=== PATIENT | male | born 1980 | race Caucasian/White ===

== ENCOUNTER 2018-02-01 20:32 | Inpatient (IN) | payer OTHER ==
[~2018-02-01] VITALS: Ht 175.3 cm; Wt 83.9 kg
[~2018-02-01 20:32] MED LIST: AUGMENTIN 875875 MG PO; HYDROCODON-ACE1 EAC7 PO; KEFLEX500 MG PO; NOHOMEMEDICATIONS; NORCO 5-325 TA1 EACH PO; PERCOCET 5-3251 EACH PO; ZANTAC 150MG T150 M1 PO
[2018-02-01 20:47] VITALS: BP 123/73
[2018-02-01 21:25] LABS: HEMATOCRIT 39.1 % (42.0-52.0); HEMOGLOBIN 13.1 gm/dL (14.0-18.0); MCH 28.5 pg (26.0-34.0); MCHC 33.4 g/dL (28.0-37.0); MCV 85.2 fL (80.0-100.0); MPV 5.9 fl. (7.2-11.1); NUCLEATED RBCS 0 /100WBC; PLATELET COUNT* 571 thou/uL (150-400); RBC 4.59 mil/uL (4.50-6.00); WBC 10.4 thou/uL (4.0-11.0)
[2018-02-01 21:33] LABS: CALCIUM 9.4 mg/dL (8.5-10.1); CREATININE 0.9 mg/dL (0.6-1.3); POTASSIUM 3.8 mmol/L (3.5-5.1)
[2018-02-01 21:38] LABS: TOTAL BILIRUBIN 0.2 mg/dL (<0.1-1.0); TOTAL PROTEIN 8.1 g/dL (6.4-8.2)
[2018-02-01 22:19] LABS: ABSOLUTE EOSINOPHILS 0.4 thou/uL (0.0-0.7); ABSOLUTE LYMPHOCYTES 2.7 thou/uL (0.8-5.3); ABSOLUTE MONOCYTES 0.6 thou/uL (0.0-1.2); ABSOLUTE NEUTROPHILS 6.7 thou/uL (1.6-8.1)
[2018-02-01 22:21] LABS: PLATELET ESTIMATE INCREASED
[2018-02-01 23:07] VITALS: BP 115/78
[2018-02-01 23:10] VITALS: BP 123/87
[2018-02-02 04:17] LABS: HEMATOCRIT 36.9 % (42.0-52.0); HEMOGLOBIN 12.5 gm/dL (14.0-18.0); MCH 29.1 pg (26.0-34.0); MCHC 33.9 g/dL (28.0-37.0); MCV 85.8 fL (80.0-100.0); RBC 4.3 mil/uL (4.50-6.00); RDW-CV 13.2 % (10.5-14.5); WBC 10.6 thou/uL (4.0-11.0)
[2018-02-02 04:45] LABS: ALBUMIN 2.7 g/dL (3.4-5.0); CALCIUM 8.9 mg/dL (8.5-10.1); CREATININE 0.8 mg/dL (0.6-1.3); POTASSIUM 4.2 mmol/L (3.5-5.1); TOTAL BILIRUBIN 0.2 mg/dL (<0.1-1.0); TOTAL PROTEIN 7.3 g/dL (6.4-8.2)
--- NOTE | 2018-02-02 07:00 | NUR ---
NEW ADMIT OVERNIGHT. PT RECEIVING IV ABX, IV PAIN MED AND ABLE TO SLEEP. JOSELYN DANIELLEG CDI, RLEG ELEVATED ON PILLOWS. ON CONTACT ISOLATION FOR MRSA, CX SENT FROM ER I&D. WOUND CARE TO SEE PT TODAY. 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 UP WITH SBA. ABLE TO USE CALL LITE AND MAKE NEEDS KNOWN.
--- NOTE | 2018-02-02 14:31 | NUR ---
SW completed initial assessment with information from nurse and chart review due to request from nurse to check back with the pt possibly tomorrow due to pt pain level and mood. Pt lives at home with his significant other. [employer] following pt due to Medicaid pending status. Pt nurse reported that pt has been non compliant with instructions provided from [facility] [place]. SW to continue to follow to assist with safe dc planning.
--- NOTE | 2018-02-02 14:42 | NUR ---
WOUND CARE NOTE: CONSULT RECEIVED FOR CELLULITIS/ABSCESS. PATIENT PRESENTS WITH AN ABSCESS TO THE RIGHT ANTERIOR LEG-JUST DISTAL TO THE KNEE. PATIENT UPSET THAT HE DIDN'T GET A WARNING ABOUT HAVING TO HAVE HIS DRESSING CHANGED. DRESSING REMOVED, DRESSING WITH MODERATE AMOUNTS OF SEROSANGUINEOUS DRAINAGE. IVY-WOUND IS RED, EDEMATOUS, WARM TO TOUCH. INCISION SITE MEASURES APPROXIMATELY 0.1X0.5X1.6. UNABLE TO PERFORM THOROUGH ASSESSMENT DUE TO HIS PAIN. CLEANSED AREA, PACKED WITH AQUACEL AG. COVERED WITH ABD. SECURED WITH KERLIX. THERE IS A BANDAID COVERING AN AREA DISTAL TO THIS WOUND, BUT PATIENT REFUSED TO ALLOW ME TO CHECK. STATES IT HAD FUSED. RECOMMEND DAILY DRESSING CHANGES FOLLOW UP IN THE WOUND CENTER UPON DISCHARGE ENCOURAGE GOOD NUTRITION AND HYDRATION SMOKING CESSATION
[2018-02-02 16:00] VITALS: BP 106/69
--- NOTE | 2018-02-02 20:03 | NUR ---
ASSUEMD CARE THIS AM, WOUND CARE NURSE CONSULT COMPLETE, PHOTO IN CHART. PATIENT HAS HIGH TOLERANCE FOR PAIN MEDICATION, AT TIMES DIFFICULT TO KEEP PAIN UNDER CONTROL, GEORGE IV ABT W/O S/S ADR. CONT POC.
[2018-02-02 21:30] VITALS: BP 128/66
[2018-02-03 00:20] VITALS: BP 128/66
[2018-02-03 04:09] LABS: HEMATOCRIT 36.7 % (42.0-52.0); HEMOGLOBIN 12.3 gm/dL (14.0-18.0); MCH 28.8 pg (26.0-34.0); MCHC 33.6 g/dL (28.0-37.0); MCV 85.8 fL (80.0-100.0); MPV 5.8 fl. (7.2-11.1); RBC 4.27 mil/uL (4.50-6.00); RDW-CV 13.3 % (10.5-14.5); WBC 10.1 thou/uL (4.0-11.0)
[2018-02-03 04:12] LABS: CREATININE 0.9 mg/dL (0.6-1.3); MAGNESIUM 2.2 mg/dL (1.8-2.4); POTASSIUM 4.2 mmol/L (3.5-5.1)
[2018-02-03 08:00] VITALS: BP 113/70
--- NOTE | 2018-02-03 08:29 | NUR ---
PATIENT HAS SLEPT WELL THROUGHOUT THE NIGHT WITHOUT ANY ISSUES. PAIN MEDICATION GIVEN NEEDED AND CHARTED. VSS ON RA. DRESSING TO RIGHT LOWER LEG IS C/D/I. IV IN RIGHT AC-SL. IV ABT GIVEN WITHOUT ANY ADVERSE SIDE EFFECTS NOTED. PATIENT REMAINS ON CONTACT ISOLATION. PATIENT INSTRUCTED TO USE CALL LIGHT WHEN NEEDING ASSISTANCE. HOURLY ROUNDS MADE. WILL CONTINUE WITH PLAN OF CARE AND NURSING TO MONITOR.
--- NOTE | 2018-02-03 15:18 | NUR ---
EVAN met with Chiquita from [employer] who explained that pt would most likely qualify and be approved for Medicaid, however pt is not agreeing to speak with [employer] about questions or agree to receive assistance in applying for Medicaid with [employer]. Chiquita stated she tried twice and both times pt refused to begin process and Chiquita gathered that pt might be afraid he would lose everything to be on Medicaid, Chiquita said she tried to educate pt about the benefits however pt did no want to speak with her anymore at that time. Pt to dc home with significant other; no other dc needs expressed.
[2018-02-03 16:06] VITALS: BP 114/71
--- NOTE | 2018-02-03 16:54 | NUR ---
PATIENT A&OX4, ROOM AIR, IV RIGHT AC FLUIDS INFUSSING. PATIENT NOT RECEPTIVE TO CARE GIVEN, REFUSING HELP BEING OFFERED. C/O LEG PAIN, MINIMAL TO NO RELIEF WITH MEDICATION. THIS A.M. PATIENT REFUSED PO PAIN MEDS AND WANTED IV PAIN MEDS. ALTERNATING THE REST OF THE DAY. PATIENT SLEPT COMFORTABLY DURING THE DAY. NO OTHER CONCERNS AT THIS TIME. WILL CONTINUE TO MONITOR.
[2018-02-03 23:53] VITALS: BP 129/82
--- NOTE | 2018-02-04 02:54 | NUR ---
INITALY PT ANXIOUS, ANGRY, HOSTIL AT TIMES. MORPHINE 4 MG IVP GIVEN FOR PAIN ALTERNATING WITH HYDROCODONE. PT STATED PAIN WAS AT 8/10 AND UNCHANGED SINCE ADMIT. PT STATED HE HAD A HIGH TOLERANCE. WHEN ASKED IF PT HAD DRUG HX. HE BECAME ANGRY BEGAN CURSING AT RN AND REFUSED OFFER OF 8MG MORPHINE. PT STATED HE WAS GOING TO LEAVE. AMY GEORGE NOTIFIED. [facility] SPOKE WITH PT. PT AGREED TO TAKE 8 MG MORPHINE. AFTERWARDS PAIN RATED AT 6/10. PT STATED THAT WAS A NUMBER HE WOULD BE COMFORTABLE WITH. PT REFUSES PO PAIN MEDS AND JUST WANTS MORPHINE. R KNEE DRSG CDI. R LEG RED AND SWOLLEN. REASSURANCE PROVIDED. WILL CONTINUE TO MONITOR.
--- NOTE | 2018-02-04 05:17 | NUR ---
PT MUCH MORE COMFORTABLE. MORPHINE 8MG GIVEN Q 2 HRS. PT STATES HX OF IV HEROIN USE AND HIGH PAIN TOLERANCE. PT STATED HE WAS FRUSTRATED BC HE HAS HAD HIGH PAIN LEVEL SINCE ADMISSION. PT STATES HE PREFERS NOT TO TAKE PO PAIN MEDS BC IT UPSETS STOMACH.
[2018-02-04 08:00] VITALS: BP 107/60
[2018-02-04] MEDS ORDERED: MINOCYCLINE HC100 M2 PO (09:46)
--- NOTE | 2018-02-04 13:05 | NUR ---
PATIENT CONTINUES TO REQUEST PAIN MEDS ABOUT EVERY 2 HOURS AND IS STILL REFUSING TO TAKE ORAL PAIN MEDS. EDUCATION PROVIDED. CALL LIGHT WITHIN REACH. WILL CONTINUE WITH PLAN OF CARE.
[2018-02-04 15:54] VITALS: BP 128/76
--- NOTE | 2018-02-04 18:34 | NUR ---
PATIENT HAS BEEN A/O X 4 THIS SHIFT. MEDICATED FOR RIGHT KNEE PAIN EVERY 2-3 HOURS WITH IV PAIN MEDS WITH PARTIAL EFFECT. HAS BEEN IN BETTER MOOD THIS SHIFT. DRESSING CHANGED TO RIGHT KNEE THIS AM, UNABLE TO PACK AQUACEL AG INTO WOUND OPENING. PATIENT'S IV ANTIBIOTICS DC'D AND STARTED ON ORAL MINOCYCLINE. PRELIMINARY CULTURE RESULTS IN CHART, FINAL CULTURE RESULTS PENDING. PATIENT TOLERATING DIET. PATIENT CONTINUES TO REFUSE ORAL PAIN MEDS, PHYSICIANS AWARE. REMAINS IN CONTACT ISOLATION PENDING CULTURE RESULTS. HOURLY ROUNDING COMPLETED. CALL LIGHT WITHIN REACH. WILL COTNINUE WITH PLAN OF CARE.
[2018-02-04 20:00] VITALS: BP 121/68
--- NOTE | 2018-02-05 06:32 | NUR ---
PATIENT SLEPT MOST OF THE NIGHT. PATIENT WAS GIVEN PAIN MEDS ABOUT EVERY THREE HOURS. PATIENT IS HOPING TO GO HOME TODAY. WILL CONTINUE TO MONITOR.
[2018-02-05 08:50] VITALS: BP 118/77
[2018-02-05 10:41] VITALS: BP 121/68
--- NOTE | 2018-02-05 12:45 | NUR ---
PATIENT GIVEN DISCHARGE INSTRUCTIONS AND PRESCRIPTIONS. PATIENT VERBALIZED UNDERSTANDING IN REGARDS TO WOUND CARE, NEW MEDICATIONS AND FOLLOW UP APPOINTMENTS. PATIENT GIVEN CAB VOUCHER. AMBULATED OFF NURSING UNIT WITH NURSING STAFF. DISCHARGED TO HOME WITH ALL BELONGINGS.
== END 2018-02-05 12:45 | disposition home or self-care (01) | DRG 603 ==
LOC: M.ERS 20:32 → M.TBA-ER 22:10 → M.3W 22:10
PROVIDERS: Emergency Medicine; Internal Medicine; ADMIT Internal Medicine
PROC: 0Y9H0ZZ Drainage of Right Lower Leg, Open Approach (ICD-10-PCS; principal; 2018-02-01)
DX: L03.115 Cellulitis of right lower limb (principal); E44.1 Mild protein-calorie malnutrition; F17.210 Nicotine dependence, cigarettes, uncomplicated; F12.90 Cannabis use, unspecified, uncomplicated; F14.90 Cocaine use, unspecified, uncomplicated; L02.415 Cutaneous abscess of right lower limb; B95.62 Methicillin resistant Staphylococcus aureus infection as the cause of diseases classified elsewhere; Z68.27 Body mass index [BMI] 27.0-27.9, adult; Z87.442 Personal history of urinary calculi; Z79.899 Other long term (current) drug therapy